=== PATIENT | female | born 1970 ===

== ENCOUNTER 2020-12-18 13:31 | Emergency (ER) | payer MEDICAID, SELFPAY ==
--- NOTE | ~2020-12-18 | US_ITS ---
EXAMINATION: US ABDOMEN LIMITED CLINICAL INFORMATION: Right upper quadrant pain. COMPARISON: None TECHNIQUE: Real-time imaging of the right upper quadrant abdominal viscera. FINDINGS: PANCREAS: Partially obscured by overlying bowel gas but where seen it was unremarkable LIVER: Normal. The liver is normal in size. The liver contour is normal. Slightly hyperechoic. No focal hepatic lesion. There is no intrahepatic biliary duct dilatation seen. GALLBLADDER: Normal. The gallbladder is physiologically distended without evidence of stones, sludge, polyps, wall thickening or pericholecystic fluid. COMMON BILE DUCT: Normal in caliber measuring 0.5 cm in diameter. RIGHT KIDNEY: Normal. No hydronephrosis. No renal calculi or focal parenchymal lesions. The kidney measures 0.2 cm in maximum dimension. FREE FLUID: None. US/US abdomen limited IMPRESSION: No acute abnormality seen. Slightly increased hepatic echotexture but no focal hepatic lesion or biliary ductal dilatation.
[2020-12-18 14:26] VITALS: BP 158/80; PULSE 104; RESP 20; TEMP 37.1; O2SAT 96; BMI 50.8
[2020-12-18 15:00] LABS: COVID-19 Test Negative (Negative); IDNOW Serial# 9DD0AD1C
[2020-12-18 15:40] LABS: MANUAL DIFF FLAG NO
[2020-12-18 15:48] LABS: Basophils Percent Auto 0.2 % (0-2); Eosinophils Absolute Auto 0.1 X10*3/uL (0.0-0.4); Eosinophils Percent Auto 0.6 % (0-4); Hematocrit 40.6 % (37-47); Hemoglobin 12.1 g/dl (12.0-16.0); Imm Gran Abs Auto 0.06 X10*3/uL (0.00-0.03); Imm Gran Pct Auto 0.4 % (0.0-0.4); Lymphocytes Absolute Auto 2.2 X10*3/uL (1.2-4.9); Mean Corpuscular HGB Conc 29.8 g/dl (31.0-35.0); Mean Corpuscular Hemoglobin 22.8 pg (27.0-33.0); Mean Corpuscular Volume 76.5 fL (80-98); Mean Platelet Volume 11.3 fL (9.4-12.3); Monocytes Absolute Auto 0.6 X10*3/uL (0.1-1.2); Neutrophils Percent Auto 80.8 % (45-73); Platelet Count 375 X10*3/uL (160-400); Red Blood Count 5.31 X10*6/uL (4.20-5.50); Red Cell Distribution Width 15.8 % (11.0-16.0)
[2020-12-18 16:03] LABS: Anion Gap 17 (12-20); Blood Urea Nitrogen 9 mg/dL (9-16); Calcium 9.3 mg/dL (8.4-10.2); Carbon Dioxide 29 mmol/L (22-29); Chloride 94 mmol/L (96-108); Creatinine Clr Calc Pharmacy 117.7; Estimated Glomerular Filt Rate > 60; Glucose Random 180 mg/dL (60-115); Potassium 3.8 mmol/L (3.3-5.1); Sodium 136 mmol/L (135-145)
[2020-12-18 16:27] VITALS: BP 184/84; PULSE 113; RESP 18; TEMP 37; O2SAT 97
--- NOTE | 2020-12-18 16:28 | ED.NAVMDI ---
HPI - Nausea/Vomiting/Diarrhea General Chief complaint: Nausea/Vomiting/Diarrhea Stated complaint: covid symptoms Time Seen by Provider: 12/18/20 16:08 History of Present Illness HPI Narrative: Patient complains of right upper quadrant and epigastric pain associated with nausea vomiting and diarrhea for the past 3 days, she is able to keep down some fluids but no solids, she denies fever she denies chills she denies any burning on urination or problems with urination, she is not dizzy or weak Related Data Previous Rx's Medication Instructions Recorded famotidine [Pepcid] 20 mg PO BID PRN #20 tab 12/18/20 loperamide [Imodium A-D] 2 mg PO Q4H PRN #10 cap 12/18/20 ondansetron HCl [Zofran] 4 mg PO Q6H PRN #10 tab 12/18/20 Allergies Allergy/AdvReac Type Severity Reaction Status Date / Time penicillin G [PENICILLIN G] Allergy Unknown RASH Unverified 06/13/20 15:40 Review of Systems Review of Systems: Positive for abdominal pain nausea vomiting diarrhea, negatives are no fever no chills no dizziness no weakness no confusion no headache no sore throat no neck pain no difficulty breathing no chest pain no shortness of breath no palpitations no feeling faint or dizzy , no blood in stool or vomitus no black stools no coffee-ground vomitus, no dysuria no burning with urination or frequency of urination no skin rash no numbness or weakness Yes all other systems are reviewed and are negative [facility] Past Medical History [facility] Narrative: General appearance is no acute distress, cooperative A&O x3 The pupils are anicteric with no pallor The mucous membranes are mildly dry The neck is supple The chest is clear to auscultation bilaterally with full symmetric equal breath sounds The heart no murmur auscultated The abdomen has mild tenderness in both epigastrium and right upper quadrant, there is no rebound n no guarding Extremities is full range of motion x4 without tenderness swelling or deformity, no calf pain or tenderness no skin rash Skin no pallor, turgor is normal Neuro no focal deficits Social History Social History Advance Directives: Yes Advance Directives Information Provided: Yes Advance Directives on File: No Physical Exam Vital Signs: Vital Signs: Last Vital Signs Temp 98.9 F 12/18/20 18:00 Pulse 89 12/18/20 18:00 Resp 15 12/18/20 18:00 BP 131/95 H 12/18/20 18:00 Pulse Ox 96 12/18/20 18:00 Body Mass Index 50.8 Physical exam was accidentally placed in past medical history section Course Course Course Narrative: Patient was hydrated given Zofran and feels much better is tolerating p.o., repeat abdominal exam has no tenderness and patient feels very improved Ultrasound was normal White count was 16, lactic acid was normal 1.6, patient is well-appearing afebrile no evidence of any infectious process so sepsis unlikely Patient feeling very improved and tolerating p.o. is discharged MDM - Nausea/Vomiting/Diarrhea Lab Data Attestation: I reviewed the patient's lab results. Result diagrams: 12/18/20 15:32 12/18/20 15:32 Labs: Lab Results 12/18/20 12/18/20 12/18/20 Range/Units 14:30 15:32 15:32 WBC 16.0 H (4.8-10.8) X10*3/uL RBC 5.31 (4.20-5.50) X10*6/uL Hgb 12.1 (12.0-16.0) g/dl Hct 40.6 (37-47) % MCV 76.5 L (80-98) fL MCH 22.8 L (27.0-33.0) pg MCHC 29.8 L (31.0-35.0) g/dl RDW 15.8 (11.0-16.0) % Plt Count 375 (160-400) X10*3/uL MPV 11.3 (9.4-12.3) fL Immature Gran % (Auto) 0.4 (0.0-0.4) % Neut % (Auto) 80.8 H (45-73) % Lymph % (Auto) 14.0 L (20-40) % Young % (Auto) 4.0 (2-11) % Eos % (Auto) 0.6 (0-4) % Baso % (Auto) 0.2 (0-2) % Lymph # (Auto) 2.2 (1.2-4.9) X10*3/uL Young # (Auto) 0.6 (0.1-1.2) X10*3/uL Eos # (Auto) 0.1 (0.0-0.4) X10*3/uL Baso # (Auto) 0.0 (0.0-0.2) X10*3/uL Abs Immat Gran (auto) 0.06 H (0.00-0.03) X10*3/uL Absolute Neuts (auto) 13.0 H (2.0-8.3) X10*3/uL Absolute Nucleated RBC 0.000 (0.0-0.012) X10*3/uL Nucleated RBC % (auto) 0.0 (0.0-0.2) /100WBC Sodium 136 (135-145) mmol/L Potassium 3.8 (3.3-5.1) mmol/L Chloride 94 L (96-108) mmol/L Carbon Dioxide 29 (22-29) mmol/L Anion Gap 17 (12-20) BUN 9 (9-16) mg/dL Creatinine 0.77 (0.5-1.4) mg/dL Estim Creat Clear Calc 117.7 Estimated GFR > 60 Random Glucose 180 H (60-115) mg/dL Lactic Acid (0.5-2.0) mmol/L Calcium 9.3 (8.4-10.2) mg/dL Total Bilirubin 0.4 (0.0-1.0) mg/dL Direct Bilirubin 0.2 (0.0-0.5) mg/dL AST 17 (5-31) U/L ALT 9 (0-31) U/L Alkaline Phosphatase 97 (39-117) U/L Total Protein 8.0 (6.5-8.0) g/dL Albumin 4.2 (3.5-5.0) g/dL Lipase 21 (8-78) U/L Urine Color Urine Appearance Urine pH (5.0-8.0) Ur Specific [place] (1.005-1.025) Urine Protein (NEG-TRACE) MG/DL Urine Glucose (UA) (NEG) MG/DL Urine Ketones (NEG) MG/DL Urine Blood (NEG) Urine Nitrite (NEG) Ur Leukocyte Esterase (NEG) Urine RBC (0) /HPF Urine WBC (0-4) /HPF Ur Squamous Epith Cells /LPF Urine Bacteria /LPF Urine Mucus /LPF Urine Test (NEGATIVE) COVID-19 (SUAD) Negative (Negative) COVID-19 Clin Com See Note 12/18/20 12/18/20 12/18/20 Range/Units 16:30 19:14 19:14 WBC (4.8-10.8) X10*3/uL RBC (4.20-5.50) X10*6/uL Hgb (12.0-16.0) g/dl Hct (37-47) % MCV (80-98) fL MCH (27.0-33.0) pg MCHC (31.0-35.0) g/dl RDW (11.0-16.0) % Plt Count (160-400) X10*3/uL MPV (9.4-12.3) fL Immature Gran % (Auto) (0.0-0.4) % Neut % (Auto) (45-73) % Lymph % (Auto) (20-40) % Young % (Auto) (2-11) % Eos % (Auto) (0-4) % Baso % (Auto) (0-2) % Lymph # (Auto) (1.2-4.9) X10*3/uL Young # (Auto) (0.1-1.2) X10*3/uL Eos # (Auto) (0.0-0.4) X10*3/uL Baso # (Auto) (0.0-0.2) X10*3/uL Abs Immat Gran (auto) (0.00-0.03) X10*3/uL Absolute Neuts (auto) (2.0-8.3) X10*3/uL Absolute Nucleated RBC (0.0-0.012) X10*3/uL Nucleated RBC % (auto) (0.0-0.2) /100WBC Sodium (135-145) mmol/L Potassium (3.3-5.1) mmol/L Chloride (96-108) mmol/L Carbon Dioxide (22-29) mmol/L Anion Gap (12-20) BUN (9-16) mg/dL Creatinine (0.5-1.4) mg/dL Estim Creat Clear Calc Estimated GFR Random Glucose (60-115) mg/dL Lactic Acid 1.6 (0.5-2.0) mmol/L Calcium (8.4-10.2) mg/dL Total Bilirubin (0.0-1.0) mg/dL Direct Bilirubin (0.0-0.5) mg/dL AST (5-31) U/L ALT (0-31) U/L Alkaline Phosphatase (39-117) U/L Total Protein (6.5-8.0) g/dL Albumin (3.5-5.0) g/dL Lipase (8-78) U/L Urine Color YELLOW Urine Appearance HAZY Urine pH 6.0 (5.0-8.0) Ur Specific [place] 1.025 (1.005-1.025) Urine Protein NEG (NEG-TRACE) MG/DL Urine Glucose (UA) NEG (NEG) MG/DL Urine Ketones NEG (NEG) MG/DL Urine Blood TRACE (NEG) Urine Nitrite NEG (NEG) Ur Leukocyte Esterase 1+ H (NEG) Urine RBC 0-2 (0) /HPF Urine WBC 1-4 (0-4) /HPF Ur Squamous Epith Cells 3+ /LPF Urine Bacteria TRACE /LPF Urine Mucus TRACE /LPF Urine Test NEGATIVE (NEGATIVE) COVID-19 (SUAD) (Negative) COVID-19 Clin Com Discharge Plan Discharge Clinical Impression: Gastroenteritis Patient Disposition: Home, Self-Care Additional Instructions: Our workup today including labs urine test and ultrasound did not show any dangerous condition You improved with medication and hydration so use the Zofran as needed for nausea, Imodium for diarrhea, Pepcid for acid pain and drink plenty of fluids Return any time any worse condition or concerns Prescriptions: New ondansetron HCl [Zofran] 4 mg tablet 4 mg PO Q6H PRN (Reason: nausea and vomiting) Qty: 10 RF: 0 famotidine [Pepcid] 20 mg tablet 20 mg PO BID PRN (Reason: Acid pain in stomach) Qty: 20 RF: 0 loperamide [Imodium A-D] 2 mg capsule 2 mg PO Q4H PRN (Reason: loose stool) Qty: 10 RF: 0
[2020-12-18 16:52] LABS: Alanine Aminotransferase 9 U/L (0-31); Albumin Level 4.2 g/dL (3.5-5.0); Alkaline Phosphatase 97 U/L (39-117); Aspartate Amino Transferase 17 U/L (5-31); Bilirubin Direct 0.2 mg/dL (0.0-0.5); Bilirubin Total 0.4 mg/dL (0.0-1.0); Lipase 21 U/L (8-78)
[2020-12-18 17:01] LABS: Lactic Acid 1.6 mmol/L (0.5-2.0)
[2020-12-18] MEDS: ondansetron HCL 4 MG/2 ML VIAL IVPUSH (17:30)
--- NOTE | 2020-12-18 17:40 | PC.NURSE ---
client aware she still needs to produce urine sample but unable to void at this time
[2020-12-18 18:00] VITALS: BP 131/95; PULSE 89; RESP 15; TEMP 37.2; O2SAT 96
[2020-12-18 19:26] LABS: Glucose Urine UA NEG (NEG); Leukocyte Esterase Urine 1+ (NEG); Nitrite Urine NEG (NEG); Specific Gravity - Urine 1.025 (1.005-1.025); UACC Culture Trigger YES; Urine Blood TRACE (NEG); Urine Ketones NEG (NEG); Urine Protein NEG (NEG-TRACE)
--- NOTE | 2020-12-18 19:26 | PC.NURSE ---
client requesting ativan at this time. enedina leonard aware.
[2020-12-18 19:30] LABS: Appearance Urine HAZY; Color Urine YELLOW
[2020-12-18 19:54] LABS: Bacteria Urine TRACE /LPF; Mucus Urine TRACE /LPF; RBC Urine 0-2 /HPF (0); Squamous Epithelial Cell Urine 3+ /LPF
[2020-12-18 19:58] LABS: UPreg QC Valid YES; Urine Pregnancy NEGATIVE (NEGATIVE)
== END 2020-12-18 20:29 | disposition home or self-care (01) ==
PROVIDERS: Physician Assistant Medical; Emergency Provider Emergency Medicine
DX: K52.9 Noninfective gastroenteritis and colitis, unspecified (principal); Z20.822 Contact with and (suspected) exposure to COVID-19; R11.2 Nausea with vomiting, unspecified; R10.13 Epigastric pain
CPT/HCPCS: 36415; 76705; 80048; 80076; 81001; 81003; 81025; 83605; 83690; 85025; 87040; 87086; 87635; 96374; 99284; J2405

== ENCOUNTER 2024-04-03 12:43 | Emergency (ER) | payer MEDICAID, SELFPAY ==
--- NOTE | ~2024-04-03 | XR_ITS ---
EXAMINATION: XR CHEST CLINICAL INFORMATION: Cough, positive Covid COMPARISON: None available. TECHNIQUE: Frontal view of the chest was obtained. FINDINGS: Dilated right hemidiaphragm. No gross airspace consolidation. Cardiomediastinal silhouette within normal limits. Soft tissue and osseous structures within limits. XR/XR chest 1V IMPRESSION: No acute cardiopulmonary process. Elevated right hemidiaphragm limits evaluation of the right lung. Recommend repeat AP and lateral if warranted.
--- NOTE | 2024-04-03 12:45 | ECG_ITS ---
Test Reason : chest pain Blood Pressure : / mmHG Vent. Rate : 093 BPM Atrial Rate : 093 BPM P-R Int : 130 ms QRS Dur : 084 ms QT Int : 362 ms P-R-T Axes : 048 064 040 degrees QTc Int : 450 ms Normal sinus rhythm Normal ECG When compared to the previous EKG of No significant changes seen Referred By: Generic ED Physician Electronically Signed By:Brock Claros
[2024-04-03 13:05] VITALS: BP 151/84; PULSE 89; RESP 18; TEMP 36.6; O2SAT 94; BMI 53.5
[2024-04-03 14:25] LABS: Influenza A PCR NEGATIVE (Negative); Influenza B PCR NEGATIVE (Negative); Resp Syncy Virus RNA Qual PCR NEGATIVE (Negative); SARS COV2 PCR INHOUSE POSITIVE (Negative)
--- NOTE | 2024-04-03 20:04 | ED.URI ---
HPI - URI/Sore Throat General Chief Complaint: Upper Respiratory Symptoms Stated Complaint: Chest pain/Sore throat/Fever Time Seen by Provider: 04/03/24 19:54 Source: patient Mode of arrival: ambulatory Limitations: no limitations History of Present Illness ED Provider: DR. 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 Patient also been having chest pain with coughing. Patient took a home COVID test yesterday and was positive. Related Data Previous Rx's ?Medication ?Instructions ?Recorded famotidine 20 mg tablet (Pepcid) 20 mg PO BID PRN Acid pain in 12/18/20 stomach #20 tabs loperamide 2 mg capsule (Imodium 2 mg PO Q4H PRN loose stool #10 12/18/20 A-D) caps ondansetron HCl 4 mg tablet 4 mg PO Q6H PRN nausea and 12/18/20 (Zofran) vomiting #10 tabs nitrofurantoin 100 mg PO Q12H 5 days #10 caps 12/22/20 monohydrate/macrocrystals 100 mg capsule (Macrobid) Allergies Allergy/AdvReac Type Severity Reaction Status Date / Time penicillin G [PENICILLIN G] Allergy Unknown RASH Verified 04/03/24 13:08 Review of Systems Review of Systems: All other systems are reviewed and are negative Constitutional: Reports as per HPI and Reports no additional constitutional complaints Eyes: Reports as per HPI and Reports no additional eye complaints Reports system reviewed and no additional complaints, except as documented Cardiovascular: Reports as per HPI and Reports no additional cardiovascular complaints Respiratory: Reports as per HPI and Reports no additional respiratory complaints Gastrointestinal: Reports as per HPI and Reports no additional gastrointestinal complaints Genitourinary: Reports no additional female genitourinary complaints Musculoskeletal: Reports no additional musculoskeletal complaints Skin/Breast: Reports system reviewed and no additional complaints, except as docu Psychiatric: Reports no additional psychiatric complaints Endocrine: Reports no additional endocrine complaints Hematologic/Lymphatic: Reports no additional hematologic/lymphatic complaints Allergic/Immunologic: Reports no additional allergic/immunologic complaints Reports system reviewed and no additional complaints, except as documented and Reports Abnormal speech present [facility] Social History Social History Advance Directives: No Advance Directives Information Provided: Yes Do you have a plan to hurt others: No Plan Physical Exam Vital Signs: Vital Signs: Last Vital Signs Temp 97.9 F 04/03/24 13:05 Pulse 89 04/03/24 13:05 Resp 18 04/03/24 13:05 BP 151/84 H 04/03/24 13:05 Pulse Ox 94 04/03/24 13:05 O2 Del Method Room Air 04/03/24 13:05 BMI result Body Mass Index 53.5 Vital signs have been reviewed and appear to be correct. Blood pressure elevated. Heart rate normal. Respiratory rate normal. Temperature normal. Oxygen saturation normal. Appearance: Alert. Oriented X3. No acute distress. Head: Normal external exam. Normocephalic. Atraumatic. No Buchanan signs noted. No raccoon eyes noted Eyes: PERRLA. EOMI. Conjunctiva and sclera normal. Eyelids normal. ENT: TM's Normal. Pharynx normal. Uvula midline. Moist mucous membranes. No trismus noted. No drooling noted. No muffled voice noted. Neck: Normal inspection. Neck supple. FROM. No adenopathy. Thyroid Normal. No meningeal signs. No neck mass noted. CVS: Normal heart rate and rhythm. Heart sound normal. No murmurs noted. Pulses normal throughout. Respiratory: No respiratory distress. Painless inspiration. Breath sounds normal. No wheezes/rales/rhonchi noted. Chest nontender. No accessory muscle usage noted or decreased air movement noted. Abdomen: Soft and nontender. Bowel sounds normal in all 4 quadrants. No distention noted. No organomegaly noted. No visible injury noted. Back: No CVA tenderness. Full range of motion noted. Skin: Skin warm and dry. Normal skin color. Normal skin turgor. No rashes/lesions/lacerations noted. Extremities: No lower extremity edema. Extremities exhibit normal range of motion. Extremities nontender. Neuro: Oriented X 3. Cranial nerve exam: II-XII are grossly intact No motor deficit. No sensory deficit. Reflexes normal. Course Reevaluation(s) Reevaluation #1: COVID-19 infection. Patient was instructed to self quarantine, where face mask at all times, frequent hand washing, keep social distancing, use asthma medication if needed for shortness of breath. EKG is unremarkable, negative troponin For patient complain of chest pain which is likely secondary to coughing and chest wall pain in origin. Time: 20:06 Medical Decision Making Differential Diagnosis Differential Diagnoses: The differential diagnosis associated with the presentation includes ( COVID, influenza, RSV, ACS, pneumonia, pneumothorax, pleural effusion , hypoxia.) Admission/Observation Consideration of admission/observation: Escalation of care including admission/observation considered Lab Data MDM Lab Attestation statement: I reviewed the patient's lab results. Labs: Lab Results 04/03/24 Range/Units 13:29 Influenza Type A (PCR) NEGATIVE (Negative) Influenza Type B (PCR) NEGATIVE (Negative) RSV RNA Qual (PCR) NEGATIVE (Negative) SARS-CoV-2 RNA (RT-PCR) POSITIVE A (Negative) Independent Interpretation I performed an independent interpretation of an: Plain X-Ray ( Chest: No acute intrathoracic pathology.) Radiology Impression Discussion of test interpretation with radiology: I have reviewed the radiologist's reading. Discharge Plan Discharge Clinical Impression: COVID-19 virus infection Patient Disposition: Home, Self-Care Instructions: COVID-19 (Coronavirus Disease 2019) (ED) Additional Instructions: self quarantine for 5 days. Take Tylenol 500 mg or ibuprofen 200 mg tablet every 6 hours if needed for pain. Use your albuterol bump 1-2 puffs every 6 hours if needed for pain. Seek immediate medical attention for shortness of breath. Keep social distancing. Frequent hand washing. Use face mask at all times Prescriptions: No Action ondansetron HCl [Zofran] 4 mg tablet 4 mg PO Q6H PRN (Reason: nausea and vomiting) Qty: 10 0RF famotidine [Pepcid] 20 mg tablet 20 mg PO BID PRN (Reason: Acid pain in stomach) Qty: 20 0RF loperamide [Imodium A-D] 2 mg capsule 2 mg PO Q4H PRN (Reason: loose stool) Qty: 10 0RF Rx Instructions: administer after each loose stool until symptoms controlled; do not exceed 8 mg per 24 hrs nitrofurantoin monohyd/m-cryst [Macrobid] 100 mg capsule 100 mg PO Q12H 5 Days Qty: 10 0RF Rx Instructions: must administer with a meal/food Stand Alone Forms: Work/School Release Print Language: Tunisian
[2024-04-03 20:10] VITALS: BP 165/73; PULSE 82; RESP 16; TEMP 36.9; O2SAT 97
--- NOTE | 2024-04-03 20:21 | MHC.EDTECH ---
this pct just assumed care of patient ,vitals taken and 2nd trop drawn and sent to lab .
[2024-04-03 20:55] LABS: Troponin-I High Sensitivity < 2.7 ng/L (<3.5-17.0)
[2024-04-03 21:58] VITALS: BP 127/78; PULSE 81; RESP 16; TEMP 36.9; O2SAT 98
[2024-04-03 22:46] VITALS: BP 127/78; PULSE 81; RESP 16; TEMP 36.9; O2SAT 98
== END 2024-04-03 22:46 | disposition home or self-care (01) ==
PROVIDERS: Emergency Provider Emergency Medicine
DX: U07.1 COVID-19 (principal); R07.89 Other chest pain; R05.9 Cough, unspecified; R50.9 Fever, unspecified; Z79.899 Other long term (current) drug therapy
CPT/HCPCS: 0241U; 36415; 71045; 84484; 93005; 99283; 99284

== ENCOUNTER → 2024-04-03 12:45 | Outpatient (BNV) | payer MEDICAID, SELFPAY | PROVIDERS: Emergency Provider Emergency Medicine; Visit Provider Internal Medicine Cardiovascular Disease | DX: R07.9 Chest pain, unspecified (principal) | CPT/HCPCS: 93010 ==